=== PATIENT | female | born 1990 | race Caucasian/White ===

== ENCOUNTER 2022-07-03 10:05 | Emergency (ER) | payer BC, OTHER ==
[~2022-07-03] VITALS: Ht 149.9 cm; Wt 49.9 kg
[2022-07-03] MEDS ORDERED: KETOROLAC TROMETHAMINE 30 MG/ML VIAL IV STA (10:36)
[2022-07-03] MEDS ORDERED: CYCLOBENZAPRINE HCL 10 MG TAB PO ONE (10:45)
[2022-07-03 11:14] LABS: BASOPHILS % 0.5 % (0.0-1.0); EOSINOPHILS # (AUTO) 0.1 (0.0-0.4); HEMATOCRIT 44.2 % (34.2-44.1); HEMOGLOBIN 14.7 g/dL (12.0-16.0); LYMPHOCYTES # (AUTO) 2.3 (1.0-3.2); LYMPHOCYTES % 35.5 % (18.0-39.1); MEAN CORPUSCULAR HEMOGLOBIN 30.6 pg (28-32); MEAN CORPUSCULAR HGB CONC 33.3 g/dL (31-35); MEAN CORPUSCULAR VOLUME 91.9 fL (81-99); MONOCYTES # (AUTO) 0.5 (0.2-0.8); MONOCYTES % 7.3 % (4.4-11.3); NEUTROPHILS # (AUTO) 3.6 (2.1-6.9); NEUTROPHILS % 54.2 % (38.7-80.0); PLATELET COUNT 280 x10e3/uL (140-360); RED BLOOD COUNT 4.81 x10e6/uL (3.6-5.1); RED CELL DISTRIBUTION WIDTH 11.4 % (11.7-14.4)
[2022-07-03 11:31] LABS: ALBUMIN 3.8 g/dL (3.5-5.0); ALBUMIN/GLOBULIN RATIO 1.1 (0.8-2.0); ANION GAP 14.3 mmol/L (8-16); CALCIUM 9.4 mg/dL (8.4-10.2); CREATININE, SERUM 0.74 mg/dL (0.57-1.11); POTASSIUM 4.3 mmol/L (3.5-5.1)
[2022-07-03 12:27] LABS: CLARITY,URINE CLOUDY (CLEAR); COLOR,URINE YELLOW (YELLOW); KETONES,URINE NEGATIVE (NEGATIVE); LEUKOCYTE ESTERASE ,URINE NEGATIVE (NEGATIVE); NITRITE,URINE POSITIVE (NEGATIVE); PROTEIN,URINE DIPSTICK NEGATIVE (NEGATIVE); URINE UROBILINOGEN 0.2 mg/dL (0.2 - 1)
[2022-07-03 12:53] LABS: BACTERIA,URINE MANY /HPF; EPITHELIAL CELLS,URINE MODERATE /LPF; RBC,URINE 0-5 /HPF (0-5)
[2022-07-03] MEDS ORDERED: CEFTRIAXONE 1 GM VIAL IV ONE (13:30)
[2022-07-03] MEDS ORDERED: CEPHALEXIN500 MG PO (13:43)
[2022-07-03] MEDS ORDERED: GABAPENTIN100 MG PO (13:43)
[2022-07-03] MEDS ORDERED: CYCLOBENZAPRINE10 MG PO (13:43)
== END 2022-07-03 13:53 | disposition home or self-care (01) ==
LOC: ER 10:09
DX: M51.26 Other intervertebral disc displacement, lumbar region (principal); N39.0 Urinary tract infection, site not specified; F41.9 Anxiety disorder, unspecified; F32.A Depression, unspecified
CPT/HCPCS: 36415; 72148; 80053; 81001; 85025; 99284; J1885

== ENCOUNTER 2022-07-16 19:25 | Emergency (ER) | payer OTHER ==
[~2022-07-16] VITALS: Ht 149.9 cm; Wt 49.9 kg
[~2022-07-16 19:25] MED LIST: CEPHALEXIN500 MG PO; CYCLOBENZAPRINE10 MG PO; GABAPENTIN100 MG PO
[2022-07-16] MEDS ORDERED: ONDANSETRON HCL INJ 2MG/ML 2ML 2 MG/ML VIAL IV STA (20:03)
[2022-07-16] MEDS ORDERED: DEXAMETHASONE SOD PHOS INJ 4 MG/ML SDV ONE (20:04)
[2022-07-16] MEDS ORDERED: ULTRAM 50MG50 MG PO (20:10)
[2022-07-16] MEDS ORDERED: DEXAMETHASONE SOD PHOS INJ 4 MG/ML SDV IV ONE (20:15)
[2022-07-16] MEDS ORDERED: Morphine 4mg INJECTION 4 MG/ML INJ IV ONE (20:15)
== END 2022-07-16 20:32 | disposition home or self-care (01) ==
LOC: FSED 19:40
DX: M54.41 Lumbago with sciatica, right side (principal); F41.9 Anxiety disorder, unspecified; F32.A Depression, unspecified
CPT/HCPCS: 99283; J1100; J2270; J2405